=== PATIENT | female | born 2000 | race Two or more races ===

== ENCOUNTER 2021-04-04 03:41 | Emergency (ER) | payer SELFPAY ==
[~2021-04-04] VITALS: Ht 167.6 cm; Wt 77.1 kg
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
--- NOTE | 2021-04-04 03:57 | NUR ---
[employer] AT BEDSIDE
--- NOTE | 2021-04-04 05:03 | NUR ---
PATIENT TAKEN TO CT
--- NOTE | 2021-04-04 05:48 | NUR ---
PATIENT ABLE TO AMBULATE TO RESTROOM
[2021-04-04] MEDS ORDERED: IBUP-1955 PO (06:50)
[2021-04-04 06:52] VITALS: BP 129/72
--- NOTE | 2021-04-04 06:59 | NUR ---
Patient discharged to home in stable condition. Written and verbal after care instructions given. Patient verbalizes understanding of instruction.
[2021-04-04] MEDS ORDERED: KETOROLAC TROMETHAMINE INJ 60 MG/2 ML VIAL IM ONE (07:00)
[2021-04-04] MEDS ORDERED: TDAP [DIPH/PERTUSSIS/TET] 0.5 ML VIAL IM ONE (07:00)
== END 2021-04-04 06:59 | disposition home or self-care (01) ==
LOC: ER 03:44
DX: S00.83XA Contusion of other part of head, initial encounter (principal); S60.512A Abrasion of left hand, initial encounter; S80.211A Abrasion, right knee, initial encounter; S00.31XA Abrasion of nose, initial encounter; Y08.89XA Assault by other specified means, initial encounter; Y93.89 Activity, other specified; Y92.89 Other specified places as the place of occurrence of the external cause; Y99.8 Other external cause status
CPT/HCPCS: 70450-TC; 70486-TC; 72125-TC